=== PATIENT | male | born 1990 | race Caucasian/White ===

== ENCOUNTER → 2017-06-29 | Outpatient (CLI) | payer BC ==
[2017-06-29 16:56] LABS: BASO % 0.4 %; BASO ABS # 0.03 K/uL (0-0.2); COMPLETE YES; HEMATOCRIT 47.6 % (42-52); IG% 0.4 %; LYMPH % 36.6 %; LYMPH ABS # 2.88 K/uL (1.2-3.4); MEAN CELL VOLUME 86.5 fL (80-100); MEAN CORPUSCULAR HEMOGLOBIN 29.3 pg (25-34); MEAN CORPUSCULAR HGB CONC 33.8 g/dl (32-36); MEAN PLATELET VOLUME 10.9 fL (7.4-10.4); MONO % 10.4 %; NEUT % 51.2 %; PLATELET COUNT 182 K/uL (130-400); WHITE BLOOD COUNT 7.86 K/uL (4.8-10.8)
--- NOTE | 2017-07-02 10:02 | CODING QUERY NO DIAGNOSIS ---
TREATMENT RENDERED WITHOUT A DIAGNOSIS : 1990 To promote full compliance with coding requirements relating to patient care, physician participation is requested in all cases of calculation clerk uncertainty. Please assist us with providing a diagnosis/symptom for the test(s) below: A diagnosis/symptom was not documented on your Order. A valid diagnosis/symptom is required to bill all insurances. Please remember that we are unable to code a diagnosis of rule out, probable, possible, questionable, or suspected. Tests that require a diagnosis: DOS: 06/29/17 * CBC WITH AUTO DIFFER DIAGNOSIS: Provider Signature: Date: Thank you Judie Rothman Health Information Management Once completed, please kindly fax back to [phone] For questions please call [phone]
== END | disposition home or self-care (01) ==
LOC: C.LABBC 14:24
PROVIDERS: ATTEND Orthopaedic Surgery Orthopaedic Surgery of the Spine
DX: M50.20 Other cervical disc displacement, unspecified cervical region (principal)

== ENCOUNTER 2017-08-05 06:44 | Observation (INO) | payer BC ==
--- NOTE | 2017-08-04 10:01 | HISTORY & PHYSICAL EXAMINATION ---
DATE OF ADMISSION: 08/05/2017 He is being preoped for an anterior cervical disc arthroplasty at C5-C6 cervical spine. CHIEF COMPLAINT: Neck pain, arm pain, trapezius pain and headaches. Refractory are not improving with 14 months of conservative management with documented disc herniation at C5-C6 cervical spine. PAST MEDICAL HISTORY: Positive for anxiety, usual childhood diseases. No hypertension, diabetes, carcinoma. PAST SURGICAL HISTORY: Negative. ALLERGIES: None. FAMILY HISTORY: Father with a melanoma. SOCIAL HISTORY: He is , no children. Minimal alcohol, does chew tobacco products, active lifestyle. REVIEW OF SYSTEMS: No fever, sweats, chills. Ear, nose and throat negative. Denies chest pain, palpitations. No asthma, wheezing. No nausea, vomiting. Admits to memory loss, depression. Admits to numbness and tingling, joint pain, neck pain. No diabetes, no immune deficiency. MEDICATIONS: Cymbalta, Wellbutrin. PHYSICAL EXAMINATION: GENERAL: 5 feet 11 inches, 240 pounds. He is in moderate distress, alert and oriented, does not appear depressed today. VITAL SIGNS: Blood pressure 130/80, pulse 80. He is afebrile. SKIN AND INTEGUMENTARY: Normal. No warmth, erythema or adenopathy. CARDIAC: Normal S1, S2, no S3. LUNGS: Clear. ABDOMEN: Soft, nontender. Bowel sounds present in all quadrants. NEUROLOGIC: Intact, 5/5 strength. Slight loss of sensation. Positive Spurling maneuver, positive Lhermitte's sign. No upper motor neuron issues. No Deepak. No gait abnormality. Images demonstrated cervical disc herniation at C5-C6 cervical spine. DISPOSITION: Includes anterior cervical disc arthroplasty, C5-C6 cervical spine.
[~2017-08-05] VITALS: Ht 180.3 cm; Wt 100.0 kg
[2017-08-05] VITALS (9 sets, daily range): BP systolic 112–133; BP diastolic 69–86; PULSE 88–108; TEMP 36.5–36.9; O2SAT 94–99; Ht 180.3 cm; Wt 100.0 kg
[~2017-08-05 06:44] MED LIST: BUPRTAB51 PO; DULO60CA44 PO; LACTATED RINGER'S 1000ML 1,000 ML IV SCH; MULT-506 PO
[2017-08-05] MEDS ORDERED: BUPR-79 PO (07:07)
[2017-08-05] MEDS ORDERED: NEOSTIGMINE METHYLSULFATE 1 MG/ML 10ML VIAL ONE (07:55)
[2017-08-05] MEDS ORDERED: DEXAMETHASONE SOD INJ 4 MG/ML VIAL ONE (07:55)
[2017-08-05] MEDS ORDERED: MIDAZOLAM HCL 1 MG/ML 2ML VIAL ONE ×2 (07:55→07:56)
[2017-08-05] MEDS ORDERED: PHENYLEPHRINE HCL INJ 10 MG/ML VIAL ONE (07:55)
[2017-08-05] MEDS ORDERED: FENTANYL CITRATE INJ 50 MCG/1 ML 2 ML VIAL ONE ×2 (07:55→10:17)
[2017-08-05] MEDS ORDERED: PROPOFOL IV EMULSION 10 MG/ML 20 ML VIAL IV ONE (07:55)
[2017-08-05] MEDS ORDERED: GLYCOPYRROLATE INJ 0.2 MG/ML VIAL ONE (07:55)
[2017-08-05] MEDS ORDERED: EpHEDrine SULFATE INJ 50 MG/ML AMP ONE (07:55)
[2017-08-05] MEDS ORDERED: ONDANSETRON INJ 2 MG/ML 2 ML VIAL ONE (07:55)
[2017-08-05] MEDS ORDERED: LIDOCAINE HCL 2% 2 ML VIAL (20MG/ML) ONE (07:55)
[2017-08-05] MEDS ORDERED: SUCCINYLCHOLINE CHLORIDE 20 MG/ML 10 ML VIAL IV ONE (07:55)
[2017-08-05] MEDS ORDERED: THROMBIN FOR SOLN 20000 UNIT KIT ONE (07:59)
[2017-08-05] MEDS ORDERED: BACITRACIN 50000 UNIT VIAL ONE (07:59)
[2017-08-05] MEDS ORDERED: GELATIN SPONGE SZ 100 ONE (07:59)
[2017-08-05] MEDS ORDERED: EpINEphrine INJ 1MG/ML AMP 1 MG/ML AMP ONE (08:00)
[2017-08-05] MEDS ORDERED: BUPIVACAINE 0.5 % 5 MG/1 ML MPF 30ML VIAL ONE (08:00)
--- NOTE | 2017-08-05 08:17 | History & Physical Bridge Note ---
H&P Re-Evaluation Bridge Note: I have examined the patient, reviewed the History & Physical and in the interval since the performance of the History & Physical I have noted the following changes of clinical significance: No changes noted
[2017-08-05] MEDS ORDERED: CEFAZOLIN SOD 1 GM VIAL IV ONE (09:13)
--- NOTE | 2017-08-05 10:25 | [facility] Post Operative Brief Note ---
Immediate Operative Summary Operative Date Aug 05, 2017. Pre-Operative Diagnosis Cervical disc herniation at C5-C6 cervical spine. Post-Operative Diagnosis Cervical disc herniation at C5-C6 cervical spine. Procedure(s) Performed C5-C6 Anterior Cervical Disc Arthroplasty Surgeon Spray I Painter Surgeon(s) DANII Elizalde Estimated Blood Loss 10ML Findings disc herniation Specimens None per surgeon Complication(s) None Disposition Recovery Room / PACU
--- NOTE | 2017-08-05 10:37 | DIAGNOSTIC IMAGING REPORT ---
SPINE ONE VIEW, ANY LEVEL HISTORY: 26 years-old Male ACDF C5-C6 status post fusion at C5-C6 COMPARISON: Cervical spine radiographs 06/09/2017 TECHNIQUE: Single crosstable lateral spot fluoroscopic image of the cervical spine was obtained utilizing 14.8 seconds fluoroscopy time. FINDINGS: The sixth vertebral body is not well seen secondary to overlying soft tissue. Discectomy changes with anterior fusion screws noted at the C5-C6 level. Alignment is satisfactory. No acute fracture or subluxation identified. IMPRESSION: Status post discectomy and fusion at C5-C6 with satisfactory alignment. The above report was generated using voice recognition software. It may contain grammatical, syntax or spelling errors. Electronically signed by: Americo Mcgregor M.D. 08/05/2017 10:36 AM Dictated Date/Time: 08/05/2017 10:34 AM
[2017-08-05] MEDS ORDERED: MAGNESIUM HYDROXIDE SUSP 30 ML UDC PO PRN (11:00)
[2017-08-05] MEDS ORDERED: NALOXONE HCL 0.4 MG/1 ML VIAL/CARP IV PRN ×2 (11:00→11:45)
[2017-08-05] MEDS ORDERED: ACETAMINOPHEN IV 1,000 MG in EMPTY BAG 0 ML IV PRN (11:00)
[2017-08-05] MEDS ORDERED: ONDANSETRON INJ 2 MG/ML 2 ML VIAL IV PRN ×2 (11:00→11:45)
[2017-08-05] MEDS ORDERED: DEXAMETHASONE INJ 8 MG in SYRINGE 0 ML IV PRN (11:00)
[2017-08-05] MEDS ORDERED: RACEPINEPHRINE 2.25% NEBU SOLN 0.5 ML VIAL INH PRN (11:00)
[2017-08-05] MEDS ORDERED: LORAZEPAM INJ 0.5 MG in SYRINGE 0.75 ML IV PRN (11:00)
[2017-08-05] MEDS ORDERED: NURSING VERBAL MED ORDER ONE (11:10)
[2017-08-05] MEDS ORDERED: HYDROmorphone INJ 1 MG/ML SYR ONE (11:12)
--- NOTE | 2017-08-05 11:14 | OPERATIVE REPORT ---
DATE OF OPERATION: 08/05/2017 PREOPERATIVE DIAGNOSIS: Disk herniation, C5-C6 cervical spine. POSTOPERATIVE DIAGNOSIS: Same. PROCEDURE: Anterior cervical discectomy and arthroplasty, C5-C6 cervical spine. SURGEON: Dr. Fernando. MANIFEST CLERK: Jarret Silva PA-C. COMPLICATIONS: Zero. BLOOD LOSS: Less than 10 mL ANESTHETIC: General intubated. DESCRIPTION OF PROCEDURE: The patient was taken to the surgical suite, Thacker catheter administered, antibiotics administered, positioned and prepped and draped in a sterile fashion. We also prepped out the left iliac crest which was not used in the procedure. We made a transverse skin incision right over the C5-C6 interspace dissecting the soft tissue. We came down on the anterior aspect of the spinal canal, which was the vertebral body and disk we marked the C5-C6 interspace. We were able to do a complete discectomy. I got laterally to the uncovertebral joints bilaterally as best as I could do. This back to the posterior longitudinal ligament and through this using a small curette, pituitaries as well. I was pleased with the removal of disk and cartilaginous endplate. We then began the sizing for the implant. We settled on the size 15 x 15 x 6, 6 mm in height top to bottom fit into the vacated discectomy site very well and tapped into place, this was about 2 mm from the end of the vertebral body. We irrigated thoroughly and closed in the usual sterile fashion. A collar applied. The patient returned to recovery room satisfactory and stable. No apparent complications. No specimens. Sponge and needle count correct at the close. I attest to the content of the Intraoperative Record and any orders documented therein. Any exception s are noted below.
[2017-08-05] MEDS ORDERED: HYDROmorphone INJ 1 MG/ML SYR IV PRN (11:45)
[2017-08-05] MEDS ORDERED: EpHEDrine SULFATE INJ 50 MG/ML AMP IV PRN (11:45)
[2017-08-05] MEDS ORDERED: FLUMAZENIL 0.1 MG/1 ML 10 ML VIAL IV PRN (11:45)
[2017-08-05] MEDS ORDERED: ATROPINE SULFATE 0.1 MG/ML 5ML SYR IV PRN (11:45)
[2017-08-05] MEDS ORDERED: LABETALOL HCL IV 5 MG/ML 20ML IV PRN (11:45)
[2017-08-05] MEDS ORDERED: PROMETHAZINE HCL INJ 12.5 MG in SODIUM CHLORIDE 0.9% 50ML 50 ML IV PRN (11:45)
[2017-08-05] MEDS ORDERED: IV FLUIDS COMPLETED PRN (12:00)
--- NOTE | 2017-08-05 12:07 | Anesthesiology Progress Note ---
Anesthesia Post Op Note Date & Time Aug 05, 2017 at 12:07 Vital Signs Pain Intensity: 3 Vital Signs Past 12 Hours Date Time Temp Pulse Resp B/P (MAP) Pulse Ox O2 Delivery O2 Flow Rate FiO2 08/05/17 12:05 36.3 104 17 129/82 98 Nasal Cannula 4 08/05/17 11:55 105 15 131/84 98 Nasal Cannula 4 08/05/17 11:45 103 14 127/77 98 Nasal Cannula 4 08/05/17 11:35 105 15 126/87 99 Nasal Cannula 4 08/05/17 11:25 102 17 123/80 98 Nasal Cannula 4 08/05/17 11:15 103 18 135/89 100 Oxymask 10 08/05/17 11:05 106 19 130/84 100 Oxymask 10 08/05/17 10:55 105 17 125/82 100 Oxymask 10 08/05/17 10:45 36.2 105 16 130/87 100 Oxymask 10 08/05/17 07:08 36.8 88 20 133/81 (98) 99 Room Air Notes Mental Status: alert / awake / arousable, participated in evaluation Pt Amnestic to Procedure: Yes Nausea / Vomiting: adequately controlled Pain: adequately controlled Airway Patency, RR, SpO2: stable & adequate BP & HR: stable & adequate Hydration State: stable & adequate Anesthetic Complications: no major complications apparent
[2017-08-05] MEDS: SODIUM CHLORIDE 0.9% 1000ML 1,000 ML IV SCH (13:43)
[2017-08-05] MEDS ORDERED: ROCURONIUM BROMIDE 10 MG/ML 5 ML VIAL IV ONE (13:55)
[2017-08-05] MEDS ORDERED: CEFAZOLIN IV 1,000 MG in DEXTROSE 5% 50ML 50 ML IV SCH (14:00)
[2017-08-05] MEDS: HYDROmorphone INJ 0.5 MG/0.5 ML SYR IV PRN ×3 (14:28→21:22)
[2017-08-05] MEDS: OXYCODONE/ACETAMINOPHEN 5-325 TAB PO PRN (19:05)
[2017-08-05] MEDS: DOCUSATE SODIUM 100 MG CAP PO SCH (21:23)
[2017-08-05] MEDS: CEFAZOLIN IV 1,000 MG in SYRINGE 0 ML IV SCH (22:05)
[2017-08-06] VITALS (8 sets, daily range): BP systolic 104–120; BP diastolic 70–72; PULSE 70–84; TEMP 36.5–36.9; O2SAT 95–100
[2017-08-06] MEDS: SODIUM CHLORIDE 0.9% 1000ML 1,000 ML IV SCH (00:31)
[2017-08-06] MEDS: OXYCODONE/ACETAMINOPHEN 5-325 TAB PO PRN ×2 (03:19→07:25)
[2017-08-06] MEDS: CEFAZOLIN IV 1,000 MG in SYRINGE 0 ML IV SCH (05:16)
[2017-08-06] MEDS ORDERED: COUGH DROP (SUGAR FREE) LOZ 24 LOZ/1 BOX ONE (07:21)
[2017-08-06] MEDS: DOCUSATE SODIUM 100 MG CAP PO SCH (07:25)
--- NOTE | 2017-08-06 08:05 | Discharge Instructions ---
Discharge Instructions Date of Service Aug 06, 2017. Admission Reason for Admission: Cervical Disc Herniation Discharge Discharge Diagnosis / Problem: same Discharge Goals Goal(s): Improve function Activity Recommendations Activity Limitations: as noted below Lifting Limitations: until after follow-up appointment Exercise/Sports Limitations: until after follow-up appointment Shower/Bathe: may shower/bathe in 3 days rest, walk, recover . Current Hospital Diet Patient's current hospital diet: Full Liquid Diet Discharge Diet Recommended Diet: Regular Diet Procedures Procedures Performed: C5-C6 Anterior Cervical Disc Arthroplasty Pending Studies Studies pending at discharge: no Medical Emergencies . Who to Call and When: Medical Emergencies: If at any time you feel your situation is an emergency, please call 911 immediately. . Non-Emergent Contact Non-Emergency issues call your: Surgeon . "Provider Documentation" section prepared by Nato Fernando. . VTE Core Measure Inpt VTE Proph given/why not?: Treatment not indicated
--- NOTE | 2017-08-06 08:19 | DISCHARGE SUMMARY ---
SUBJECTIVE: Improved, stable, alert, oriented. No chest pain, shortness of breath, leg pain and no confusion. OBJECTIVE: Vital signs stable. Moves all extremities. Wounds clean, protected. ASSESSMENT: Status post cervical disc arthroplasty done yesterday. DISPOSITION: Discharged home today, improved, stable. He has medication at home. He has a followup appointment instruction precautions given in the office and here at the hospital.
[2017-08-06] MEDS ORDERED: MULTIVITAMIN TAB PO SCH (09:00)
[2017-08-06] MEDS ORDERED: DULOXETINE HCL 60 MG CAP PO SCH (09:00)
[2017-08-06] MEDS ORDERED: BuPROPion XL 300 MG TABCR PO SCH (09:00)
[2017-08-06] MEDS ORDERED: BuPROPion SR 150 MG TABCR PO SCH (09:00)
[2017-08-07] MEDS ORDERED: BISACODYL 10 MG SUPP PR PRN (06:00)
[2017-08-07] MEDS ORDERED: BISACODYL 5 MG TABEC PO PRN (06:00)
== END 2017-08-06 10:35 | disposition home or self-care (01) ==
LOC: C.ACU 06:44 → C.3E 07:45 → ENRESERV 11:31
PROVIDERS: ADMIT Orthopaedic Surgery Orthopaedic Surgery of the Spine; ATTEND Orthopaedic Surgery Orthopaedic Surgery of the Spine
DX: M50.20 Other cervical disc displacement, unspecified cervical region (principal); E66.9 Obesity, unspecified; Z68.30 Body mass index [BMI] 30.0-30.9, adult; Z98.890 Other specified postprocedural states; Z87.891 Personal history of nicotine dependence